=== PATIENT | female | born 2000 | race Caucasian/White ===

== ENCOUNTER → 2019-08-10 | Outpatient (CLI) | payer OTHER ==
--- NOTE | 2019-08-13 11:12 | PCVCIMAG ---
EXAM: NONINVASIVE ARTERIAL EXAMINATION OF BOTH LOWER EXTREMITIES INCLUDING PRE AND POST COLD WATER IMMERSION THERMAL MEASUREMENTS AND DOPPLER WAVEFORMS INDICATION: Leg pain. Concern for Raynaud's. FINDINGS: At baseline there is satisfactory arterial waveforms throughout the digits of both feet with symmetric temperature measurements. Following cold water immersion there is flattening of the waveforms throughout the toes of both feet all of which recover by 20 minutes except for the fourth digit of the right foot and the first second and third digits of the left foot. Temperature measurements recover to subbaseline over 20 minutes. IMPRESSION: No obvious abnormalities at baseline in the arterial waveforms of both feet. Mild delay in temperature and waveform recovery throughout both feet as detailed above indicating likely a mild temperature sensitive vasospasm process. EXAM: BILATERAL LOWER EXTREMITY ARTERIAL DUPLEX INDICATION: Peripheral Arterial Disease. Leg pain. FINDINGS: Right Leg: Satisfactory arterial waveforms throughout the common/profunda/superficial femoral, popliteal, anterior tibial, peroneal, and posterior tibial arteries. No flow limiting stenosis seen. Left Leg: Satisfactory arterial waveforms throughout the common/profunda/superficial femoral, popliteal, anterior tibial, peroneal, and posterior tibial arteries. No flow limiting stenosis seen. IMPRESSION: No flow limiting stenosis in the right lower extremity. No flow limiting stenosis in the left lower extremity. Note is made the right and left anterior and posterior tibial arteries are somewhat small in size with dominant peroneal arteries bilaterally. This is likely a variant of normal. LOC:[id number]
== END | disposition home or self-care (01) ==
LOC: PCVCIMAG 14:22
DX: I73.00 Raynaud's syndrome without gangrene (principal); M79.669 Pain in unspecified lower leg
CPT/HCPCS: 93924; 93925